=== PATIENT | male | born 1970 | race Caucasian/White ===

== ENCOUNTER 2022-04-14 09:54 | Outpatient (CLI) | payer BC, SELFPAY ==
[2022-04-14 10:35] LABS: Albumin* 4.9 g/dL (3.3-5.0); Chloride* 101 mmol/L (96-114); Sodium* 136 mmol/L (135-149)
[2022-04-14 10:38] LABS: Alkaline Phosphatase* 51 U/L (40-150); Aspartate Amino Transferase* 53 U/L (12-35); Bilirubin Total* 0.7 mg/dL (0.1-1.5); Blood Urea Nitrogen* 13 mg/dL (7-30); Carbon Dioxide* 27 mmol/L (20-32); Cholesterol* 150 mg/dL (90-199); Creatinine* 0.7 mg/dL (0.5-1.5); Estimated Glomerular Filt Rate 110 ml/min; Total Protein* 7.4 g/dL (6.0-8.3)
[2022-04-14 10:39] LABS: Alanine Aminotransferase* 67 U/L (4-50); Calcium* 9.8 mg/dL (8.4-10.6); Glucose* 116 mg/dL (60-115); HDL Cholesterol* 95 mg/dL (>=40); LDL Cholesterol Calculated 46 mg/dL (<100); Triglycerides* 44 mg/dL (40-149)
[2022-04-14 11:04] LABS: PSA Screen* 0.45 ng/mL (0.10-4.00)
== END 2022-04-14 09:55 | disposition home or self-care (01) ==
PROVIDERS: PCP Family Medicine; Visit Provider Family Medicine
DX: E78.5 Hyperlipidemia, unspecified (principal); I10 Essential (primary) hypertension; Z12.5 Encounter for screening for malignant neoplasm of prostate
CPT/HCPCS: 80053; 80061; 84153

== ENCOUNTER 2022-11-06 08:05 | Outpatient (CLI) | payer BC, SELFPAY | END 2022-11-06 08:06 | disposition home or self-care (01) | LOC: NFLDREF 11:14 | PROVIDERS: PCP Family Medicine; Referring Provider Family Medicine; Visit Provider Family Medicine | DX: R79.89 Other specified abnormal findings of blood chemistry (principal); E11.9 Type 2 diabetes mellitus without complications | CPT/HCPCS: 80053; 82043; 82570 ==

== ENCOUNTER 2023-06-01 09:18 | Outpatient (CLI) | payer BC, SELFPAY ==
--- OUTSIDE RECORDS SUMMARY | 2023-06-04 12:54 | XMS_ITS | Clinical Summary ---
Author Name Unknown Organization [facility] Address [place], [place] [address] Care Team Providers Care Deputy Court Name Role Phone Rosamaria Moffett MD Primary Care Provider + Allergies No known active allergies Medications Medication Sig Dispensed Refills Start Date End Date Status aspirin chewable 81 mg chewable tabletIndications :Ischemia of digits of hand Take 1 tablet by mouth once daily with a meal. 0 12/08/2013 Active albuterol HFA (VENTOLIN HFA) 90 mcg/actuation inhalerIndication s:Bronchospasm Inhale 1-2 Puffs by mouth 4 times daily if needed. 1 Inhaler 2 09/24/2015 Active budesonide-formot darren (SYMBICORT) 160-4.5 mcg/actuation (160-4.5 mcg each actuation) inhalerIndication s:Bronchospasm Inhale 2 Puffs by mouth 2 times daily. 3 Inhaler 3 10/09/2015 Active folic acid 1 mg tabletIndications :ETOH abuse TAKE 1 TABLET BY MOUTH EVERY DAY 180 tablet 2 06/12/2016 Active NIFEdipine (ADALAT CC) 60 mg Extended-Release tabletIndications :Essential hypertension,Isch emia of digits of hand Take 1 tablet by mouth once daily before a meal. 90 tablet 3 08/11/2019 Active atorvastatin (LIPITOR) 10 mg tablet Take 1 Tablet (10 mg) by mouth once daily. 0 06/12/2022 Active metoprolol succinate SR (TOPROL XL) 200 mg Sustained-Release tabletIndications :SVT (supraventricular tachycardia) Take 1 Tablet (200 mg) by mouth once daily. 90 Tablet 3 05/28/2023 Active metoprolol succinate SR (TOPROL XL) 200 mg Sustained-Release tablet Take 1 Tablet (200 mg) by mouth once daily. 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 Essential hypertension with goal blood pressure less than 140/90 03/17/2007 Tobacco use disorder 03/17/2007 Esophageal reflux 08/10/2006 Other psoriasis 08/10/2006 Resolved Problems Problem Noted Date Diagnosed Date Resolved Date Pulmonary nodule, right 09/24/2015 05/ Overview: 1 x 1.5 cm between posterior R 6th and 7th ribs on 09/18/15 CXR Encounters Date Type Department Care Team Description 05/28/2023 2:00 PM [employer]ANS[employer]PECTOR Phone Office Visit [facility] & [address] [address] Paresh Blanco MD Arrived from Last 3 Months Immunizations Name Administration Dates Next Due Tdap 11/19/2006 Family History Medical History Relation Name Comments Cancer Maternal Grandfather Cancer Paternal Grandfather Cancer Paternal Grandmother Cancer Paternal Uncle 2 Relation Name Status Comments Brother Alive Father Alive Maternal Aunt Alive Maternal Grandfather Maternal Grandmother Alive Maternal Uncle Alive Mother Alive Paternal Aunt Alive Paternal Grandfather Paternal Grandmother Paternal Uncle 1 Paternal Uncle 2 Sister Alive Son Alive Social History Tobacco Use Types Packs/Day Years Used Date Smoking Tobacco: Every Day Cigarettes 0.5 32 Started: 05/17/1991 Smokeless Tobacco: Never Tobacco Cessation:Ready to Q uit: No; Counseling Given: Yes Comments:Previously 2 ppd; Now at 5-8 cigarettes a day (01/04) Alcohol Use Standard Drinks/Week Comments Yes 16.7 (1 standard dri nk = 0.6 oz pure alcohol) 6-8 12 oz. cans of beer daily; rarely a day when he will not drink; no history of known withdrawal; 2 DUI in 90's; no treatment for drinking or attempts to quit Social Connections Answer Date Recorded Frequency of Communication with Friends and Fami ly Not on file 06/12/2022 Financial Resource Strain Answer Date R ecorded Difficulty of Paying Living Expenses Not on file 05/17/2021 Difficulty of Paying Living Expenses Not on file 05/17/2021 Sex and Gender Information Value Date Recorded Sex Assigned at Not on file Gender Identity Not on file Sexual Orientation Not on file Obstetrics History Last Filed Vital Signs Vital Sign Reading Time Taken Comments Blood Pressure 133/73 08/11/2019 10:16 AM CDT Pulse 80 05/15/2016 2:07 PM [employer] VE[employer] INS[employer]OR Temperature 36.6 ??C (97.8 ??F) 02/26/2016 2:01 PM CD T Respiratory Rate 16 12/05/2013 3:40 PM CDT Oxygen Saturation 100% 02/26/2016 2:01 PM CDT Inhaled Oxygen Concentration - - Weight 59.4 kg (131 lb) 08/11/2019 10:16 AM CDT Height 165.1 cm (5' 5) 08/11/2019 10:16 AM CDT Body Mass Index 21.8 08/11/2019 10:16 AM CDT Plan of Treatment Health Maintenance Due Date Last Done Comments Pneumococcal series for age 6-64 (1 of 2 - PCV) 1974 HIV for age 15-65 1983 Hepatitis C screening for ag e 18-79 1986 Colonoscopy through age 75 2013 Depression screening for age 12+ 05/24/2016 05/24/19 16 Tetanus booster 11/19/2016 11/19/2006 Zoster (shingles) series for age 50+ (1 of 2) 2018 Lipids for age 45-75 11/23/2018 11/23/2013, 03/17/20 07 BMI (ht and wt on same day) for age 18+ 08/10/2020 08/11/2019, 02/26/2016, 09/24/2015, Additional history exists Influenza for age 50-64 01/15/2023 Tdap Completed 11/19/2006 COVID-19 vaccine series Completed 04/01/20 23, 03/19/2022, 12/09/2021, Additional history exists Advance Directives Latest Code Status on File Code Status Date Activated Date Inactivated Comments Full Code 12/04/2013 10:55 AM 12/05/2013 9:[address] Relationship Specialty Start Date End Date Rosamaria Moffett MD [address] [place] [address] PCP - General Family Practice 07/22/18
== END 2023-06-01 09:19 | disposition home or self-care (01) ==
LOC: NFLDREF 06-04 12:52
PROVIDERS: PCP Family Medicine; Referring Provider Family Medicine; Visit Provider Family Medicine
DX: E11.9 Type 2 diabetes mellitus without complications (principal); I10 Essential (primary) hypertension; E78.5 Hyperlipidemia, unspecified
CPT/HCPCS: 80053; 80061; 82043; 82570

== ENCOUNTER 2023-06-14 14:40 | Outpatient (CLI) | payer BC, SELFPAY ==
--- NOTE | 2023-06-14 15:00 | CRLHL7_ITS ---
For Patients: As a result of the Century Cures Act, medical imaging exams and procedure reports are released immediately into your electronic medical record. You may view this report before your referring provider. If you have questions, please contact your health care provider. INDICATION: Lung cancer screening. History of smoking. High risk patient with greater than 20 pack-year smoking history. TECHNIQUE: Low-dose lung cancer screening non-contrast CT chest. Dose reduction techniques were used. COMPARISON: 02/16/2018 FINDINGS: NODULES: Small calcified granuloma within the periphery of the left lower lobe, unchanged. Stable 3.8 millimeter nodule right lower lobe, 3/129. Stable calcified granulomas within the right lower lobe and right upper lobe. LUNGS AND PLEURA: Emphysema. MEDIASTINUM: Calcified mediastinal and right hilar lymph nodes representing sequela of granulomatous disease. CORONARY ARTERY CALCIFICATION: Present. LIMITED UPPER ABDOMEN: Unremarkable. MUSCULOSKELETAL: Mild degenerative changes. IMPRESSION: Stable calcified granulomas bilaterally and stable small noncalcified nodules. LUNG-RADS CATEGORY: 2: Benign. RADIOLOGIST RECOMMENDATION: Continue annual screening with low-dose CT chest in 12 months. Please note that all CT scans at this facility use dose modulation, iterative reconstruction, and/or weight-based dosing when appropriate to reduce radiation dose to as low as reasonably achievable. Dictated by Oscar Arriola MD @ 06/15/2023 9:18:29 AM (Electronically Signed)
== END 2023-06-14 14:41 | disposition home or self-care (01) ==
LOC: CT 14:41
PROVIDERS: PCP Family Medicine; Visit Provider Family Medicine
DX: Z12.2 Encounter for screening for malignant neoplasm of respiratory organs (principal); R91.8 Other nonspecific abnormal finding of lung field; Z87.891 Personal history of nicotine dependence
CPT/HCPCS: 71271

== ENCOUNTER 2024-06-05 09:38 | Outpatient (CLI) | payer BC, SELFPAY | END 2024-06-05 09:39 | disposition home or self-care (01) | LOC: NFLDREF 06-07 01:37 | PROVIDERS: PCP Family Medicine; Referring Provider Family Medicine; Visit Provider Family Medicine | DX: I10 Essential (primary) hypertension (principal); E11.9 Type 2 diabetes mellitus without complications; E78.5 Hyperlipidemia, unspecified; I47.10 Supraventricular tachycardia, unspecified; F41.9 Anxiety disorder, unspecified; R79.89 Other specified abnormal findings of blood chemistry; E53.8 Deficiency of other specified B group vitamins; Z12.5 Encounter for screening for malignant neoplasm of prostate | CPT/HCPCS: 80053; 80061; 82043; 82570; 84443; G0103 ==

== ENCOUNTER 2024-06-15 12:49 | Outpatient (CLI) | payer BC, SELFPAY ==
--- NOTE | 2024-06-15 13:00 | CRLHL7_ITS ---
For Patients: As a result of the Cures Act, medical imaging exams and procedure reports are released immediately into your electronic medical record. You may view this report before your referring provider. If you have questions, please contact your health care provider. Indication: History of smoking Technique: Low-dose lung cancer screening non-contrast CT chest. Dose reduction techniques were used. Comparison: Chest CT on June 14, 2023 Findings: NODULES: Small calcified granuloma within the periphery of the left lower lobe, unchanged. Stable 4 millimeter nodule right lower lobe (series number 3, image 120). Stable calcified granulomas within the right lower lobe and right upper lobe. There are few focal, sub 8 millimeter ground-glass opacities seen in the bilateral upper lobes (series number 3, image 20-27) and superior segment of the right lower lobe (image 52), likely infectious/inflammatory. LUNGS AND PLEURA: Emphysema. MEDIASTINUM: Calcified mediastinal and right hilar lymph nodes representing sequela of granulomatous disease. CORONARY ARTERY CALCIFICATION: Present. LIMITED UPPER ABDOMEN: Unremarkable. MUSCULOSKELETAL: Mild degenerative changes. Impression: 1. There are few focal, sub 8 millimeter ground-glass opacities seen in the bilateral upper lobes and right lower lobe, likely infectious/inflammatory. Recommend short-term interval follow-up CT in 3-6 months to assess for resolution. 2. Otherwise stable calcified granulomas bilaterally and stable small noncalcified nodule consistent with LUNG-RADS CATEGORY: 2: Benign for which continue annual screening with low-dose CT chest in 12 months is recommended. Please note that all CT scans at this facility use dose modulation, iterative reconstruction, and/or weight-based dosing when appropriate to reduce radiation dose to as low as reasonably achievable. Dictated by Marcin Gamino MD @ 06/16/2024 10:43:35 AM (Electronically Signed)
== END 2024-06-15 12:50 | disposition home or self-care (01) ==
LOC: CT 12:50
PROVIDERS: PCP Family Medicine; Visit Provider Family Medicine
DX: Z12.2 Encounter for screening for malignant neoplasm of respiratory organs (principal); R91.8 Other nonspecific abnormal finding of lung field; F17.210 Nicotine dependence, cigarettes, uncomplicated; J44.9 Chronic obstructive pulmonary disease, unspecified
CPT/HCPCS: 71271

== ENCOUNTER 2024-10-16 14:44 | Outpatient (CLI) | payer BC, SELFPAY ==
--- NOTE | 2024-10-16 15:00 | CRLHL7_ITS ---
For Patients: As a result of the Century Cures Act, medical imaging exams and procedure reports are released immediately into your electronic medical record. You may view this report before your referring provider. If you have questions, please contact your health care provider. INDICATION: Follow-up ground-glass opacities on screening chest CT TECHNIQUE: Low-dose non-contrast CT chest. Dose reduction techniques were used. COMPARISON: 06/15/2024, 06/14/[address] chest [address]s FINDINGS: NODULES: Previous small ground-glass opacities have resolved. No new nodules. Calcified granulomas in both lungs. LUNGS AND PLEURA: Bronchial wall thickening. MEDIASTINUM: Calcified lymph nodes. No adenopathy. CORONARY ARTERY CALCIFICATION: Present. LIMITED UPPER ABDOMEN: Normal. MUSCULOSKELETAL: Normal. IMPRESSION: 1. Negative for lung cancer screening purposes. 2. Ground-glass opacities have resolved. LUNG-RADS CATEGORY 1: Negative. Continue annual screening with low-dose CT chest in 12 months. Please note that all CT scans at this facility use dose modulation, iterative reconstruction, and/or weight-based dosing when appropriate to reduce radiation dose to as low as reasonably achievable. Dictated by Devon Colmenares MD @ 10/18/2024 12:29:17 PM (Electronically Signed)
== END 2024-10-16 14:45 | disposition home or self-care (01) ==
LOC: CT 14:44
PROVIDERS: PCP Family Medicine; Visit Provider Family Medicine
DX: Z12.2 Encounter for screening for malignant neoplasm of respiratory organs (principal); F17.210 Nicotine dependence, cigarettes, uncomplicated
CPT/HCPCS: 71250